=== PATIENT | male | born 2005 | race Caucasian/White ===

== ENCOUNTER 2024-10-24 09:03 | Emergency (ER) | payer OTHER ==
[~2024-10-24] VITALS: Ht 180.3 cm; Wt 102.1 kg
[2024-10-24] MEDS ORDERED: HYDROCODONE-AC1 EA10 PO (11:28)
[2024-10-24] MEDS ORDERED: CEPH500 PO (11:28)
== END 2024-10-24 11:47 | disposition home or self-care (01) ==
LOC: ER 09:03
DX: L05.01 Pilonidal cyst with abscess (principal)
CPT/HCPCS: 10080; 99282-25